=== PATIENT | female | born 1950 ===

== ENCOUNTER 2019-08-04 12:15 | Outpatient (CLI) | payer OTHER | END 2019-08-04 14:23 | disposition home or self-care (01) | LOC: RAD 12:15 | DX: Q61.2 Polycystic kidney, adult type (principal); N20.0 Calculus of kidney ==

== ENCOUNTER 2019-11-25 09:28 | Outpatient (CLI) | payer OTHER | END 2019-11-25 09:30 | disposition home or self-care (01) | LOC: RAD 09:28 | DX: J44.1 Chronic obstructive pulmonary disease with (acute) exacerbation (principal); N20.0 Calculus of kidney ==

== ENCOUNTER 2020-09-02 09:15 | Outpatient (CLI) | payer OTHER | END 2020-09-02 09:26 | disposition home or self-care (01) | LOC: NUCLEAR 09:15 | PROVIDERS: ATTEND Internal Medicine Cardiovascular Disease | DX: I10 Essential (primary) hypertension (principal); J44.9 Chronic obstructive pulmonary disease, unspecified ==

== ENCOUNTER → 2021-03-16 07:19 | Outpatient (CLI) | payer OTHER | END | disposition home or self-care (01) | LOC: LAB 07:19 | PROVIDERS: ATTEND Internal Medicine Cardiovascular Disease | DX: I11.9 Hypertensive heart disease without heart failure (principal); E78.1 Pure hyperglyceridemia ==

== ENCOUNTER 2023-06-06 10:44 | Outpatient (CLI) | payer OTHER | END 2023-06-06 10:52 | disposition home or self-care (01) | LOC: RAD 10:44 | PROVIDERS: ATTEND Urology | DX: Q61.3 Polycystic kidney, unspecified (principal); N20.0 Calculus of kidney; R31.0 Gross hematuria ==

== ENCOUNTER 2024-04-02 08:09 | Outpatient (CLI) | payer OTHER | END 2024-04-02 08:29 | disposition home or self-care (01) | LOC: MAMO-SONO 08:09 | PROVIDERS: ATTEND Obstetrics & Gynecology | DX: M54.2 Cervicalgia (principal); N60.11 Diffuse cystic mastopathy of right breast; Z12.31 Encounter for screening mammogram for malignant neoplasm of breast ==